=== PATIENT | male | born 1955 | race Caucasian/White ===

== ENCOUNTER 2023-12-14 01:55 | Inpatient (IN) | payer OTHER, BC ==
[~2023-12-14] VITALS: Ht 175.3 cm; Wt 77.6 kg
[2023-12-14] VITALS (7 sets, daily range): BP systolic 102–122; PULSE 70–85; RESP 16–19; TEMP 83–98.6; O2SAT 93–97
[~2023-12-14 01:55] MED LIST: NO MEDS
[2023-12-14] MEDS: NACL 0.9% 1,000 ML IV ONE (03:12)
[2023-12-14] MEDS: MORPHINE 4 MG INJ. 4 MG/ML VIAL IVP ONE (03:13)
[2023-12-14 03:16] LABS: BASOPHILS # (AUTO) 0.1 K/uL (0.0-0.2); BASOPHILS % (AUTO) 0.5 % (0.0-2.0); HEMATOCRIT 42.9 % (36-54); HEMOGLOBIN 14.6 g/dL (14.0-18.0); LYMPHOCYTES # (AUTO) 0.8 K/uL (1.0-5.5); LYMPHOCYTES % (AUTO) 5.3 % (20.5-51.5); MEAN CORPUSCULAR HEMOGLOBIN 30 pg (27-31); MEAN CORPUSCULAR HGB CONC 34 % (32-36); MEAN CORPUSCULAR VOLUME 88 fL (79.0-98.0); MONOCYTES # (AUTO) 0.4 K/uL (0.0-1.0); MONOCYTES % (AUTO) 2.5 % (1.7-9.3); NEUTROPHILS # (AUTO) 14.3 K/uL (1.8-7.7); NEUTROPHILS % (AUTO) 91.7 % (40.0-70.0); PLATELET COUNT (AUTO) 293 K/uL (130-430); RED CELL DISTRIBUTION WIDTH 13.5 % (9.0-15.0); WHITE BLOOD COUNT (AUTO) 15.6 K/uL (4.8-10.8)
[2023-12-14 03:37] LABS: ALBUMIN 3.8 g/dL (3.4-4.8); BILIRUBIN,DIRECT 0.2 mg/dL (0.0-0.3); CREATININE 1.44 mg/dL (0.55-1.30); POTASSIUM 4.7 mmol/L (3.5-5.1); TOTAL BILIRUBIN 0.9 mg/dL (0.0-1.0)
[2023-12-14] MEDS ORDERED: CEFEPIME 1 GM/VIAL (MAXIPIME) ONE (04:23)
[2023-12-14] MEDS: CEFEPIME 1 GM in D5W 50 ML IV ONE (04:29)
[2023-12-14] MEDS ORDERED: ATOR10TA68 PO (04:45)
[2023-12-14] MEDS ORDERED: ASPI-1155 PO (04:45)
[2023-12-14] MEDS ORDERED: KETOROLAC TROMETHAMINE 30 MG VIAL ONE (05:17)
[2023-12-14] MEDS: KETOROLAC TROMETHAMINE 30 MG VIAL IVP ONE (05:24)
[2023-12-14 05:53] LABS: BILIRUBIN,URINE NEGATIVE (NEGATIVE); BLOOD, URINE NEGATIVE (NEGATIVE); CLARITY/URINE CLEAR (CLEAR); COLOR,URINE YELLOW (YELLOW); GLUCOSE,URINE NEGATIVE (NEGATIVE); KETONES,URINE 2+ (NEGATIVE); LEUKOCYTE ESTERASE ,URINE NEGATIVE (NEGATIVE); NITRITE, URINE NEGATIVE (NEGATIVE); PH,URINE 7.5 (5.0-8.0); UROBILINOGEN,URINE 0.2 (0.2-1.0)
[2023-12-14 06:04] LABS: PROTEIN URINE NEGATIVE (NEGATIVE)
[2023-12-14] MEDS ORDERED: D5/0.45 NS 1,000 ML IV SCH (07:00)
[2023-12-14] MEDS ORDERED: SEVOFLURANE 15 MIN GAS INH ONE (11:08)
[2023-12-14] MEDS ORDERED: SUGAMMADEX SODIUM 200 MG/2 ML VIAL IV ONE (11:08)
[2023-12-14] MEDS ORDERED: ONDANSETRON HCL 4 MG/2 ML VIAL ONE (11:08)
[2023-12-14] MEDS ORDERED: ROCURONIUM BROMIDE 10 MG/ML (ZEMURON) ONE (11:08)
[2023-12-14] MEDS ORDERED: WATER FOR IRRIGATION,STERILE 1,000 ML IRRIG.SOLN IR ONE (11:08)
[2023-12-14] MEDS ORDERED: LR 1,000 ML IV.SOLN IV ONE (11:08)
[2023-12-14] MEDS ORDERED: DEXAMETHASONE SOD PHOSPHATE 4 MG/ML VIAL ONE (11:08)
[2023-12-14] MEDS ORDERED: SUCCINYLCHOLINE CHLORIDE 20 MG/ML(QUELICIN) ONE (11:08)
[2023-12-14] MEDS ORDERED: NS IRRIG SOLN 1000 ML IR ONE (11:08)
[2023-12-14] MEDS ORDERED: PROPOFOL 200MG/ 20ML VIAL (DIPRIVAN) IV ONE (11:08)
[2023-12-14] MEDS ORDERED: metroNIDAZOLE 500 mg/NS 100 mL IVPB IV ONE (11:08)
[2023-12-14] MEDS: ACETAMINOPHEN I.V. 1000 MG 100 ML IV ONE (11:09)
[2023-12-14] MEDS: MIDAZOLAM HCL 2 MG/2 ML VIAL (VERSED) ONE (11:09)
[2023-12-14] MEDS: fentaNYL CITRATE/PF 100 MCG/2 ML AMP ONE (11:09)
[2023-12-14] MEDS ORDERED: HYDROmorphone 1 MG/ML INJ. CARTRIDGE IVP PRN (11:30)
[2023-12-14] MEDS ORDERED: NALOXONE HCL 0.4 MG/ML AMP (NARCAN) IVP PRN (11:30)
[2023-12-14] MEDS ORDERED: fentaNYL CITRATE/PF 100 MCG/2 ML AMP IVP PRN ×2 (11:30)
[2023-12-14] MEDS ORDERED: ONDANSETRON HCL 4 MG/2 ML VIAL IVP PRN (11:30)
[2023-12-14] MEDS: BUPIVACAINE LIPOSOME/PF 266 MG/20 ML VIAL INFIL ONE (12:09)
[2023-12-14] MEDS: LR 1,000 ML IV ONE (12:30)
[2023-12-14] MEDS: MORPHINE 4 MG INJ. 4 MG/ML VIAL IVP PRN (19:59)
[2023-12-14] MEDS: CEFEPIME 1 GM in D5W 50 ML IV SCH (20:14)
[2023-12-15] VITALS: BP_SYST 108; PULSE 71; RESP 17; TEMP 98.3; O2SAT 98
[2023-12-15 05:58] LABS: BASOPHILS % (AUTO) 0.1 % (0.0-2.0); HEMATOCRIT 35.4 % (36-54); HEMOGLOBIN 11.8 g/dL (14.0-18.0); LYMPHOCYTES # (AUTO) 1.3 K/uL (1.0-5.5); LYMPHOCYTES % (AUTO) 7.5 % (20.5-51.5); MEAN CORPUSCULAR HEMOGLOBIN 30 pg (27-31); MEAN CORPUSCULAR HGB CONC 33 % (32-36); MEAN CORPUSCULAR VOLUME 88 fL (79.0-98.0); MONOCYTES # (AUTO) 0.9 K/uL (0.0-1.0); MONOCYTES % (AUTO) 5.2 % (1.7-9.3); NEUTROPHILS # (AUTO) 15.7 K/uL (1.8-7.7); NEUTROPHILS % (AUTO) 87.2 % (40.0-70.0); PLATELET COUNT (AUTO) 245 K/uL (130-430); RED BLOOD CELL COUNT(AUTO) 4.01 MIL/uL (4.2-6.2); RED CELL DISTRIBUTION WIDTH 13.7 % (9.0-15.0); WHITE BLOOD COUNT (AUTO) 17.9 K/uL (4.8-10.8)
[2023-12-15 06:31] LABS: CALCIUM 8.2 mg/dL (8.4-11.0); CREATININE 1.26 mg/dL (0.55-1.30); POTASSIUM 4.1 mmol/L (3.5-5.1)
[2023-12-15 08:00] VITALS: BP_SYST 111; PULSE 68; RESP 16; TEMP 98.1; O2SAT 96
[2023-12-15 08:30] VITALS: O2SAT 96
[2023-12-15] MEDS: ONDANSETRON HCL 4 MG/2 ML VIAL IVP PRN (09:12)
[2023-12-15 11:12] VITALS: BP_SYST 108; PULSE 81; RESP 16; TEMP 98.8; O2SAT 93
[2023-12-15] MEDS ORDERED: NACL 0.9% 1,000 ML IV SCH (11:15)
[2023-12-15] MEDS ORDERED: HYDROcodone/ACETAMIN 7.5-325 MG TAB PO PRN ×2 (12:45→13:00)
[2023-12-15 15:11] VITALS: BP_SYST 109; PULSE 60; RESP 16; TEMP 98.9; O2SAT 95
[2023-12-15 20:00] VITALS: BP_SYST 122; PULSE 80; RESP 18; TEMP 97.8; O2SAT 99
[2023-12-16] VITALS (7 sets, daily range): BP systolic 110–119; PULSE 77–95; RESP 18; TEMP 97.4–100.4; O2SAT 93–97
[2023-12-16 06:42] LABS: BASOPHILS # (AUTO) 0.1 K/uL (0.0-0.2); BASOPHILS % (AUTO) 0.4 % (0.0-2.0); EOSINOPHILS # (AUTO) 0.1 K/uL (0.0-0.4); HEMATOCRIT 35.8 % (36-54); HEMOGLOBIN 12.1 g/dL (14.0-18.0); LYMPHOCYTES # (AUTO) 1.6 K/uL (1.0-5.5); MEAN CORPUSCULAR HEMOGLOBIN 30 pg (27-31); MEAN CORPUSCULAR HGB CONC 34 % (32-36); MEAN CORPUSCULAR VOLUME 88 fL (79.0-98.0); MONOCYTES # (AUTO) 1.1 K/uL (0.0-1.0); MONOCYTES % (AUTO) 7.9 % (1.7-9.3); NEUTROPHILS # (AUTO) 10.5 K/uL (1.8-7.7); NEUTROPHILS % (AUTO) 78.7 % (40.0-70.0); PLATELET COUNT (AUTO) 233 K/uL (130-430); RED BLOOD CELL COUNT(AUTO) 4.05 MIL/uL (4.2-6.2); RED CELL DISTRIBUTION WIDTH 13.6 % (9.0-15.0); WHITE BLOOD COUNT (AUTO) 13.4 K/uL (4.8-10.8)
[2023-12-16 07:17] LABS: ALANINE AMINOTRANSFERASE 30 U/L (12-78); ALBUMIN 2.6 g/dL (3.4-4.8); ANION GAP 7 (5-15); ASPARTATE AMINOTRANSFERASE < 5 U/L (10-37); CALCIUM 8.2 mg/dL (8.4-11.0); CARBON DIOXIDE 27 mmol/L (23-29); CHLORIDE 107 mmol/L (98-107); CREATININE 1.34 mg/dL (0.55-1.30); GFR AFRICAN AMERICAN 69 mL/min (>90); GLUCOSE 80 mg/dL (74-106); POTASSIUM 3.9 mmol/L (3.5-5.1); SODIUM SERUM 141 mmol/L (136-145); TOTAL BILIRUBIN 0.5 mg/dL (0.0-1.0); TOTAL PROTEIN, SERUM 5.8 g/dL (6.4-8.3); UREA NITROGEN, BLOOD 15 mg/dL (8-21)
[2023-12-16 07:18] LABS: GFR NON AFRICAN-AMERICAN 57 mL/min (>90)
[2023-12-16] MEDS: metroNIDAZOLE 500 mg/NS 100 ML IV SCH (22:51)
[2023-12-17] VITALS: BP_SYST 110; PULSE 71; RESP 18; TEMP 99.3; O2SAT 95
[2023-12-17 06:49] LABS: BASOPHILS # (AUTO) 0.1 K/uL (0.0-0.2); BASOPHILS % (AUTO) 0.5 % (0.0-2.0); EOSINOPHILS # (AUTO) 0.2 K/uL (0.0-0.4); HEMATOCRIT 37.9 % (36-54); HEMOGLOBIN 12.8 g/dL (14.0-18.0); LYMPHOCYTES # (AUTO) 1.3 K/uL (1.0-5.5); MEAN CORPUSCULAR HEMOGLOBIN 30 pg (27-31); MEAN CORPUSCULAR HGB CONC 34 % (32-36); MEAN CORPUSCULAR VOLUME 88 fL (79.0-98.0); MONOCYTES # (AUTO) 0.9 K/uL (0.0-1.0); MONOCYTES % (AUTO) 8.1 % (1.7-9.3); NEUTROPHILS # (AUTO) 8.3 K/uL (1.8-7.7); NEUTROPHILS % (AUTO) 77.4 % (40.0-70.0); PLATELET COUNT (AUTO) 258 K/uL (130-430); RED BLOOD CELL COUNT(AUTO) 4.29 MIL/uL (4.2-6.2); RED CELL DISTRIBUTION WIDTH 13.5 % (9.0-15.0); WHITE BLOOD COUNT (AUTO) 10.7 K/uL (4.8-10.8)
[2023-12-17 07:00] LABS: CREATININE 1.27 mg/dL (0.55-1.30); POTASSIUM 3.9 mmol/L (3.5-5.1)
[2023-12-17 08:30] VITALS: O2SAT 97
[2023-12-17] MEDS ORDERED: METR-154 PO (10:54)
[2023-12-17] MEDS ORDERED: LEVO-62 PO (10:54)
[2023-12-17] MEDS: ACETAMINOPHEN 325 MG TABLET PO PRN (13:05)
[2023-12-17 13:26] VITALS: BP_SYST 119; PULSE 83; RESP 20; TEMP 98.4; O2SAT 96
[2023-12-17 13:38] VITALS: BP_SYST 119; PULSE 83; RESP 20; TEMP 98.4; O2SAT 96
[2023-12-17] MEDS: metroNIDAZOLE 500 MG TABLET PO SCH (13:53)
[2023-12-17] MEDS ORDERED: levoFLOXacin 500 MG TABLET PO SCH (21:00)
== END 2023-12-17 14:30 | disposition home or self-care (01) | DRG 399 ==
LOC: SED 01:55 → STU 04:37 → SMU 12-17 14:03
PROVIDERS: ADMIT Internal Medicine Cardiovascular Disease; ATTEND Internal Medicine Cardiovascular Disease
PROC: 0DTJ4ZZ Resection of Appendix, Percutaneous Endoscopic Approach (ICD-10-PCS; principal; 2023-12-14 11:13)
DX: K35.32 Acute appendicitis with perforation, localized peritonitis, and gangrene, without abscess (principal); I48.0 Paroxysmal atrial fibrillation; E78.5 Hyperlipidemia, unspecified; E78.00 Pure hypercholesterolemia, unspecified; N28.9 Disorder of kidney and ureter, unspecified; Z87.891 Personal history of nicotine dependence; Z79.899 Other long term (current) drug therapy; Z79.82 Long term (current) use of aspirin
CPT/HCPCS: 36415; 71045; 80048; 80053; 80076; 81001; 81003; 85025; 86886; 86900; 86901; 87040; 87070; 87075; 87081; 87101; 87186; 88304; 93005; 96361; 96365; 96375; 99285; C1727; C9290; G0378; J0131; J0330; J0692; J1100; J1885; J1956; J2270; J2405; J2704; J3010; J3465; J3490; J7060; J7120